=== PATIENT | female | born 1990 | race African-American/Black ===

== ENCOUNTER 2020-05-26 13:29 | Outpatient (REF) | payer MEDICAID, SELFPAY ==
--- NOTE | 2020-05-26 | US_ITS ---
EXAMINATION: ULTRASOUND EXTREMITY NONVASCULAR CLINICAL INFORMATION: -control upper arm implant. COMPARISON: 04/30/2020 soft tissue ultrasound. TECHNIQUE: Multiple 2-D grayscale ultrasound images of the soft tissues of the left upper arm were obtained. FINDINGS: Again seen is a linear, echogenic subcutaneous Nexplanon implant in the superficial subcutaneous fat measuring approximately 3.7 cm in length and positioned approximately 0.6 cm deep to the skin. No surrounding abnormality is seen. IMPRESSION: Subcutaneous implant shows no abnormality or significant interval change.
== END 2020-05-26 13:30 | disposition home or self-care (01) ==
LOC: HO.US 13:29
PROVIDERS: Visit Provider Surgery
DX: Z97.5 Presence of (intrauterine) contraceptive device (principal)
CPT/HCPCS: 11982; 76882; 88300; 99213

== ENCOUNTER → 2020-06-11 13:45 | Outpatient (BNVA) | payer MEDICAID, SELFPAY | PROVIDERS: PCP Internal Medicine; Visit Provider Surgery | DX: Z48.02 Encounter for removal of sutures (principal); Z97.5 Presence of (intrauterine) contraceptive device | CPT/HCPCS: 99212 ==

== ENCOUNTER → 2020-09-08 11:00 | Outpatient (BNVA) | payer MEDICAID, SELFPAY | PROVIDERS: Visit Provider Obstetrics & Gynecology | DX: Z30.9 Encounter for contraceptive management, unspecified (principal) | CPT/HCPCS: 99212 ==

== ENCOUNTER → 2020-11-17 10:54 | Outpatient (BNVA) | payer MEDICAID, SELFPAY | PROVIDERS: Visit Provider Advanced Practice Midwife | DX: N63.10 Unspecified lump in the right breast, unspecified quadrant (principal); N63.20 Unspecified lump in the left breast, unspecified quadrant | CPT/HCPCS: 99212 ==

== ENCOUNTER 2020-11-19 11:05 | Outpatient (REF) | payer MEDICAID, SELFPAY ==
--- NOTE | ~2020-11-19 | MM_ITS ---
EXAMINATION: MM DIAGNOSTIC DIGITAL BREAST TOMOSYNTHESIS, BILATERAL US BREAST LIMITED, BILATERAL CLINICAL INFORMATION: Bilateral breast lump superiorly. Patient states that the breast nodularity changes with her menstrual cycle. The lifetime risk of breast cancer based on the Tyrer-Cuzick Model is 10.2%. COMPARISON: Mammography: None TECHNIQUE: Digital breast tomosynthesis is performed in both the craniocaudal and mediolateral oblique views along with computer-aided detection (CAD). Synthesized 2-D images are generated from the tomosynthesis. Right breast craniocaudal rolled views performed. Spot compression left 90 degree mediolateral view performed. FINDINGS: The breasts are extremely dense, which lowers the sensitivity of mammography (ACR BI-RADS breast composition Category d). On initial imaging, there was question of a lobulated density about the deep medial aspect of the right breast for which rolled views were performed which demonstrated this to represent superimposition of fibroglandular tissue. 90 degree spot compression view was performed for asymmetric density about the superior aspect of the left breast which was seen to efface on the supplementary image. Bilateral breast ultrasound was then performed targeted to the superior aspects. No abnormal cystic or solid mass was appreciated. No region of abnormal distal sound shadowing. Results are discussed with the patient at time of visit. MM/MM tomosynthesis diagnostic BI IMPRESSION: No specific mammographic or ultrasound findings to suggest malignancy. ASSESSMENT: BI-RADS 1: Negative. RECOMMENDATION: Clinical followup.
--- NOTE | ~2020-11-19 | US_ITS ---
EXAMINATION: US DIAGNOSTIC ULTRASOUND BREAST, RIGHT CLINICAL INFORMATION: Palpable abnormality superior aspect of the right breast.. COMPARISON: Mammography of same day.. TECHNIQUE: Ultrasound of the breast is performed with real-time burns scale imaging and color Doppler. FINDINGS: There is no focal suspicious finding. There is no solid mass, architectural abnormality, duct ectasia, or edema in the soft tissue planes. Results are discussed with the patient at time of visit. US/US breast RT limited IMPRESSION: No specific ultrasound findings to suggest malignancy of the right breast. ASSESSMENT: BI-RADS 1: Negative RECOMMENDATION: Clinical follow-up
== END 2020-11-19 11:06 | disposition home or self-care (01) ==
LOC: HO.MAMMO 11:05
PROVIDERS: Visit Provider Advanced Practice Midwife
DX: N63.11 Unspecified lump in the right breast, upper outer quadrant (principal); N63.12 Unspecified lump in the right breast, upper inner quadrant; N63.21 Unspecified lump in the left breast, upper outer quadrant; N63.22 Unspecified lump in the left breast, upper inner quadrant
CPT/HCPCS: 76642; 77062; 77066

== ENCOUNTER → 2020-12-01 08:31 | Outpatient (BNVA) | payer MEDICAID, SELFPAY | PROVIDERS: PCP Internal Medicine; Visit Provider Surgery | DX: N64.4 Mastodynia (principal) | CPT/HCPCS: 99202 ==

== ENCOUNTER 2021-03-09 14:14 | Outpatient (REF) | payer MEDICAID, SELFPAY ==
[2021-03-11 21:07] LABS: TS Negative Control Passed; TS Panel A 0; TS Panel B 1; TS Positive Control Passed; TSpotTB Negative (SeeBelow)
== END 2021-03-09 14:15 | disposition home or self-care (01) ==
LOC: HO.LAB 14:14
PROVIDERS: PCP Internal Medicine; Visit Provider Internal Medicine
DX: Z11.1 Encounter for screening for respiratory tuberculosis (principal)
CPT/HCPCS: 36415; 86481

== ENCOUNTER → 2021-04-01 08:08 | Outpatient (BNVA) | payer SELFPAY | PROVIDERS: PCP Internal Medicine | DX: Z02.1 Encounter for pre-employment examination (principal) ==

== ENCOUNTER → 2021-07-27 11:20 | Outpatient (BNVA) | payer MEDICAID, SELFPAY | PROVIDERS: PCP Internal Medicine; Visit Provider Obstetrics & Gynecology | DX: Z30.9 Encounter for contraceptive management, unspecified (principal) | CPT/HCPCS: 99212 ==

== ENCOUNTER 2021-12-03 09:08 | Outpatient (REF) | payer MEDICAID, SELFPAY ==
[2021-12-07 14:26] LABS: HPV mRNA E6/E7 rflx Not Detected (Not Detected)
== END 2021-12-03 09:09 | disposition home or self-care (01) ==
LOC: HO.LAB 09:08
PROVIDERS: Visit Provider Obstetrics & Gynecology
DX: Z01.419 Encounter for gynecological examination (general) (routine) without abnormal findings (principal); Z11.51 Encounter for screening for human papillomavirus (HPV)
CPT/HCPCS: 87624; 88142

== ENCOUNTER 2021-12-11 11:10 | Outpatient (REF) | payer MEDICAID, SELFPAY ==
--- NOTE | ~2021-12-11 | US_ITS ---
EXAMINATION: US DIAGNOSTIC ULTRASOUND BREAST, LEFT CLINICAL INFORMATION: Pain and palpable abnormality upper outer aspect of the left breast.. COMPARISON: Mammography of same day and studies of January 19, 2021. TECHNIQUE: Ultrasound of the breast is performed with real-time burns scale imaging and color Doppler. FINDINGS: There is no focal suspicious finding. There is no solid mass, architectural abnormality, duct ectasia, or edema in the soft tissue planes. Results are discussed with the patient at time of visit. US/US breast LT limited IMPRESSION: No specific findings to suggest malignancy. ASSESSMENT: BI-RADS 1: Negative RECOMMENDATION: Clinical follow-up .
--- NOTE | ~2021-12-11 | MM_ITS ---
EXAMINATION: MM DIAGNOSTIC DIGITAL BREAST TOMOSYNTHESIS, BILATERAL US BREAST TARGETED, LEFT CLINICAL INFORMATION: Left breast lump. The lifetime risk of breast cancer based on the Tyrer-Cuzick Model is 9.9%. COMPARISON: Mammography: 11/19/2020 TECHNIQUE: Digital breast tomosynthesis is performed in both the craniocaudal and mediolateral oblique views along with computer-aided detection (CAD). Synthesized 2D images are generated from the tomosynthesis. Targeted left breast ultrasound. FINDINGS: The breasts are extremely dense, which lowers the sensitivity of mammography (ACR BI-RADS breast composition Category d). There are no significant masses, abnormal calcifications, or other abnormalities. Targeted ultrasound evaluation about the superior and lateral aspects did not demonstrate any abnormal cystic or solid mass. No region of abnormal distal sound shadowing appreciated. Results are discussed with the patient at time of visit. MM/MM tomosynthesis diagnostic BI IMPRESSION: No specific mammographic or ultrasound findings to suggest malignancy. ASSESSMENT: BI-RADS 1: Negative RECOMMENDATION: Clinical followup. Yearly mammography at age 39.
== END 2021-12-11 11:11 | disposition home or self-care (01) ==
LOC: HO.MAMMO 11:10
PROVIDERS: PCP Internal Medicine; Visit Provider Internal Medicine
DX: N63.22 Unspecified lump in the left breast, upper inner quadrant (principal)
CPT/HCPCS: 76642; 77062; 77066

== ENCOUNTER → 2022-01-27 14:52 | Outpatient (BNVA) | payer MEDICAID, SELFPAY | PROVIDERS: PCP Internal Medicine; Visit Provider Surgery | DX: N64.4 Mastodynia (principal); N63.22 Unspecified lump in the left breast, upper inner quadrant | CPT/HCPCS: 99212 ==

== ENCOUNTER 2022-02-05 14:56 | Outpatient (REF) | payer MEDICAID, SELFPAY ==
[2022-02-08 18:57] LABS: TS Negative Control Passed; TS Panel A 0; TS Panel B 0; TS Positive Control Passed; TSpotTB Negative (Negative)
== END 2022-02-05 14:57 | disposition home or self-care (01) ==
LOC: HO.LAB 14:56
PROVIDERS: PCP Internal Medicine; Visit Provider Internal Medicine
DX: Z11.1 Encounter for screening for respiratory tuberculosis (principal)
CPT/HCPCS: 36415; 86481

== ENCOUNTER → 2022-03-29 14:24 | Outpatient (BNVA) | payer SELFPAY | PROVIDERS: PCP Internal Medicine | DX: Z02.83 Encounter for blood-alcohol and blood-drug test (principal) ==

== ENCOUNTER → 2022-04-05 08:12 | Outpatient (BNVA) | payer MEDICAID, SELFPAY | PROVIDERS: PCP Internal Medicine; Visit Provider Obstetrics & Gynecology | DX: Z30.09 Encounter for other general counseling and advice on contraception (principal) | CPT/HCPCS: 99212 ==

== ENCOUNTER 2023-01-21 15:06 | Outpatient (REF) | payer MEDICAID, SELFPAY ==
[2023-01-24 12:43] LABS: TS Negative Control Passed; TS Panel A 0; TS Panel B 0; TS Positive Control Passed; TSpotTB Negative (Negative)
== END 2023-01-21 15:07 | disposition home or self-care (01) ==
LOC: HO.LAB 15:06
PROVIDERS: PCP Internal Medicine; Visit Provider Internal Medicine
DX: Z11.1 Encounter for screening for respiratory tuberculosis (principal)
CPT/HCPCS: 36415; 86481

== ENCOUNTER 2023-06-30 12:52 | Outpatient (REF) | payer MEDICAID, SELFPAY | END 2023-06-30 12:53 | disposition home or self-care (01) | LOC: HO.LAB 12:52 | PROVIDERS: PCP Internal Medicine; Visit Provider Advanced Practice Midwife | DX: Z01.419 Encounter for gynecological examination (general) (routine) without abnormal findings (principal); N89.8 Other specified noninflammatory disorders of vagina | CPT/HCPCS: 0353U; 87480; 87510; 87660; 99395 ==

== ENCOUNTER 2023-06-30 12:52 | Outpatient (AMB) | payer MEDICAID, SELFPAY ==
--- NOTE | 2023-06-30 13:04 | MHC.OFFVIS ---
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 Denies vaginal itching and irritation.?Onset since 06/29/2023. 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 Currently sexually active. Uses condoms for BC. Wants to start back on BC pills.? Hx. of irregular periods.? STD screening offered; she declined.?? Denies family hx of breast, colon, ovarian cancer, or diabetes.? Last pap smear, was negative. She denies any contraindications to control such as: migraines with aura, history of DVT or pulmonary emboli, high blood pressure, liver disease, thrombolic disorders, Lupus, +AYLIN, or smoking. 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 Sexual orientation: Straight/Heterosexual Gender identity: Female Female Reproductive History Menstrual Age of Menarche: 10 Duration of menses: 3-5 days Date of last menstrual period: 06/24/23 control method: pills Total pregnancies: 1 Full term: 1 Number of Living Children: 1 Date of last pap smear: 12/03/21 (neg pap and hpv) Review of Systems Const All systems reviewed & are unremarkable except as noted in HPI and below Reports as per HPI Eyes Reports no additional complaints ENT Reports no additional complaints Card Reports no additional complaints Resp Reports no additional complaints GI Reports as per HPI and Reports no additional complaints Reports as per HPI Musc Reports no additional complaints Skin/Breast Reports as per HPI Neuro Reports no additional complaints Psych Reports no additional complaints Endo Reports no additional complaints Conor/Lymph Reports no additional complaints Aller/Immun Reports no additional complaints Physical Exam Vital Signs: Last Vital Signs BP 122/80 06/30/23 13:05 BMI result Body Mass Index 27.6 Const General: cooperative, healthy appearing, no acute distress, well developed and alert Orientation/consciousness: patient oriented x3 HEENT Head: Yes normal to inspection Eyes General: appearance normal, both eyes and all related structures Neck Neck: Yes normal visual inspection Thyroid: Thyroid normal Chest Chest palpation & inspection: normal inspection of the chest and other (no puckering, dimpling, peau de orange, retraction, discharge, masses) Breast/axilla inspection: normal inspection of the breasts Breast/axilla palpation: normal palpation of the breasts Resp Effort & Inspection: normal respiratory effort GI Inspection: Yes normal to inspection Palpation (GI): Soft to palpation Rectal Exam - Female: deferred General: Yes bladder normal to palpation External Female Exam: normal external appearance and normal appearance of the urethra Speculum Exam - Vagina: normal palpation, normal vaginal discharge and abnormal vaginal discharge (thin, white, milky discharge) Speculum Exam - Cervix: normal appearance of the cervix and normal palpation Bimanual exam- vagina & uterus: normal bimanual exam, normal palpation, uterine size normal, bladder normal to palpation, normal palpation and non-tender Bimanual Exam- Adnexa, other: no masses Skin General skin exam: no rashes or lesions noted Rashes: no rashes Neuro General: patient oriented x3 Cognition (Neuro): normal cognition Extrem General: Yes normal to inspection Psych Attitude: cooperative Thought process: Normal thought process present Assessment & Plan Assessment & Plan (1) Encounter for gynecological examination: Code(s): Z01.419 - Encounter for gynecological examination (general) (routine) without abnormal findings (2) Vaginal discharge: Code(s): N89.8 - Other specified noninflammatory disorders of vagina Plan: Will send off for a culture. Suspected to be BV. Will treat if necessary. Plan Current recommendations for pap smears per ASCCP guidelines.? Breast awareness and periodic self breast exams.?? Maintaining a healthy lifestyle including a well balanced diet and routine exercise.?? Encouraged condom use for STD and prevention.? Encouraged patient to sign up for patient portal if not already enrolled. Warnings: go to ER if and loss of vision/blindness, severe headache, chest pain or difficulty breathing, severe abdominal pain, or any pain or swelling in an extremity. All of her questions and concerns were addressed to the best of my ability.? RTO in one year for annual publications writer examination. Orders: Orders Bacterial Vaginosis Panel Today N89.8 - Other specified noninflammatory disorders of vagina CT NG by PCR Today N89.8 - Other specified noninflammatory disorders of vagina Medications: Refilled desogestrel-ethinyl estradiol 0.15-0.03 mg (Apri) 1 tab PO DAILY 28 days 84 tabs 4RF Coding Level of Care Code Est Pt Prev Care 18-39y(69101) Diagnoses Encounter for gynecological examination Z01.419 Vaginal discharge N89.8
[2023-06-30 13:05] VITALS: BP 122/80; BMI 27.6
== END 2023-06-30 15:09 | disposition home or self-care (01) ==
PROVIDERS: PCP Internal Medicine; Visit Provider Advanced Practice Midwife
DX: Z01.419 Encounter for gynecological examination (general) (routine) without abnormal findings (principal); N89.8 Other specified noninflammatory disorders of vagina
CPT/HCPCS: 99395

== ENCOUNTER 2023-06-30 13:50 | Outpatient (REF) | payer MEDICAID, SELFPAY ==
[2023-07-01 10:59] LABS: CT PCR NOT DETECTED (Not Detect.); NG PCR NOT DETECTED (Not Detect.)
[2023-07-01 13:13] LABS: BV Int Neg Control Negative (Negative); BV Int Pos Control Positive (Positive)
== END 2023-06-30 13:51 | disposition home or self-care (01) ==
LOC: HO.LNP 13:50
PROVIDERS: Visit Provider Advanced Practice Midwife
DX: N89.8 Other specified noninflammatory disorders of vagina (principal)
CPT/HCPCS: 0353U; 87480; 87510; 87660

== ENCOUNTER 2023-10-24 03:17 | Emergency (ER) | payer MEDICAID, SELFPAY ==
--- NOTE | ~2023-10-24 | US_ITS ---
EXAMINATION: US OBSTETRICAL ULTRASOUND CLINICAL INFORMATION: 6 weeks with abdominal pain COMPARISON: None from this TECHNIQUE: Sonographic evaluation of the pelvis was performed transabdominally and transvaginally. FINDINGS: Anechoic structure along the endometrium with mean diameter of 0.5 cm. Internal structure suggestive of a yolk sac is seen, and overall appearance is favored to represent a gestational sac though no pole is seen at this time which could be due to the early phase of . Mean sac diameter corresponds to gestational age of 5 weeks 0 days (estimated date of delivery 06/18/2024). The uterus measures 9.2 x 4.7 x 6.0 cm. There is a mildly hyperechoic mass in the anterior uterus measuring up to 1.8 cm, suspicious for a fibroid. The right ovary measures 2.6 x 1.4 x 1.7 cm and appears unremarkable with internal flow demonstrated on Doppler imaging. The left ovary measures 3.3 x 2.4 x 3.0 cm. Complex appearing cystic structure within the left ovary measuring up to 2.2 cm is favored to represent a corpus luteal cyst. Doppler evaluation demonstrates left ovarian flow. Trace free fluid is seen. US/US OB pelvic and transvaginal IMPRESSION: 1. Intrauterine structure likely representing a gestational sac, though no pole is seen at this time which may be due to the early phase of . Sonographic follow-up is recommended to assess for development of a gestational sac. 2. Uterine fibroid measuring 1.8 cm. 3. Trace nonspecific pelvic free fluid.
--- NOTE | ~2023-10-24 | US_ITS ---
EXAMINATION: US ABDOMEN LIMITED CLINICAL INFORMATION: Right upper quadrant pain. COMPARISON: None available. TECHNIQUE: Real-time imaging of the right upper quadrant abdominal viscera. FINDINGS: PANCREAS: The visualized proximal portion of the pancreas is unremarkable. The distal portion is obscured secondary to overlying bowel gas. LIVER: The liver is normal in size. The liver contour is normal. Parenchymal echogenicity is normal. Hyperechoic lesion measuring 1.4 cm in the right hepatic lobe is most suggestive of a hemangioma. There is no intrahepatic biliary duct dilatation seen. GALLBLADDER: The gallbladder is physiologically distended without evidence of stones, sludge, polyps, wall thickening or pericholecystic fluid. COMMON BILE DUCT: Normal in caliber measuring 0.3 cm in diameter. RIGHT KIDNEY: No hydronephrosis. No renal calculi or focal parenchymal lesions. The kidney measures 10.8 cm in maximum dimension. FREE FLUID: None. US/US abdomen limited IMPRESSION: 1. No acute findings identified. 2. Hyperechoic right hepatic lobe lesion measuring 1.4 cm, most suggestive of a hemangioma in the absence of clinical risk factors. This could be more definitively assessed with nonemergent dynamic liver MRI.
[2023-10-24 03:27] VITALS: BP 142/98; PULSE 86; RESP 18; TEMP 36.9; O2SAT 100
[2023-10-24 04:18] LABS: Hematocrit 39.4 % (37.0-47.0); Hemoglobin 13.2 g/dl (12.0-16.0); Mean Corpuscular HGB Conc 33.5 g/dl (31.0-35.0); Mean Corpuscular Hemoglobin 28.4 pg (27.0-33.0); Mean Corpuscular Volume 84.9 fL (80.0-98.0); Mean Platelet Volume 8.4 fL (9.4-12.3); Platelet Count 276 X10*3/uL (160-400); Red Blood Count 4.64 X10*6/uL (4.20-5.50); Red Cell Distribution Width 14.5 % (11.0-16.0); White Blood Count 7.9 X10*3/uL (4.8-10.8)
[2023-10-24 04:36] LABS: Anion Gap 12 (12-20); Blood Urea Nitrogen 13 mg/dL (9-16); Calcium 9.7 mg/dL (8.4-10.2); Carbon Dioxide 25 mmol/L (22-29); Chloride 104 mmol/L (96-108); Creatinine Clr Calc Pharmacy 94.9; Estimated Glomerular Filt Rate > 60; Glucose Random 124 mg/dL (60-115); Sodium 137 mmol/L (135-145)
[2023-10-24 04:37] LABS: HCG Quantitative 9495 mIU/mL
--- NOTE | 2023-10-24 05:09 | ED.GENADULT ---
HPI - General Adult General Chief complaint: Vaginal Bleeding Stated complaint: vaginal bleeding, may be Time Seen by Provider: 10/24/23 04:54 Source: patient Mode of arrival: ambulatory Limitations: no limitations History of Present Illness HPI narrative: 33-year-old female had a positive home test, patient started to have vaginal bleeding since last night patient also is complaining lower abdominal contraction/pain since yesterday, patient also is complaining of right upper quadrant abdominal pain with nausea and vomiting for 1 day. No fever, no chills, no risk for STDs, no history of ectopic , no dysuria, no frequency urination. Related Data Previous Rx's Medication Instructions Recorded desogestrel 0.15 mg-ethinyl 1 tab PO DAILY 28 days #84 tabs 06/30/23 estradiol 0.03 mg tablet (Apri) metronidazole 500 mg tablet 500 mg PO BID 7 days #14 tabs 07/06/23 Allergies Allergy/AdvReac Type Severity Reaction Status Date / Time No Known Allergies Allergy Verified 10/24/23 03:25 Review of Systems Review of Systems: All other systems are reviewed and are negative Constitutional: Reports as per HPI and Reports no additional constitutional complaints Eyes: Reports as per HPI and Reports no additional eye complaints Reports system reviewed and no additional complaints, except as documented Cardiovascular: Reports as per HPI and Reports no additional cardiovascular complaints Respiratory: Reports as per HPI and Reports no additional respiratory complaints Gastrointestinal: Reports as per HPI and Reports no additional gastrointestinal complaints Genitourinary: Reports no additional female genitourinary complaints Musculoskeletal: Reports no additional musculoskeletal complaints Skin/Breast: Reports system reviewed and no additional complaints, except as docu Psychiatric: Reports no additional psychiatric complaints Endocrine: Reports no additional endocrine complaints Hematologic/Lymphatic: Reports no additional hematologic/lymphatic complaints Allergic/Immunologic: Reports no additional allergic/immunologic complaints Reports system reviewed and no additional complaints, except as documented and Reports Abnormal speech present [facility] Past Medical History Medical History Breast pain, left Surgical History H/O lumpectomy Bilateral breast lump Family History Family History Mother Diabetes Social History Social History Alcohol intake: never Patient Tobacco Use Status: Never used Tobacco Advance Directives: No 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 Blood pressure elevated. Heart rate normal. Respiratory rate normal. Temperature normal. Oxygen saturation normal. Appearance: Alert. Oriented X3. No acute distress. Head: Normal external exam. Normocephalic. Atraumatic. No Mariscal signs noted. No raccoon eyes noted Eyes: PERRLA. EOMI. Conjunctiva and sclera normal. Eyelids normal. ENT: TM's Normal. Pharynx normal. Uvula midline. Moist mucous membranes. No trismus noted. No drooling noted. No muffled voice noted. Neck: Normal inspection. Neck supple. FROM. No adenopathy. Thyroid Normal. No meningeal signs. No neck mass noted. CVS: Normal heart rate and rhythm. Heart sound normal. No murmurs noted. Pulses normal throughout. Respiratory: No respiratory distress. Painless inspiration. Breath sounds normal. No wheezes/rales/rhonchi noted. Chest nontender. No accessory muscle usage noted or decreased air movement noted. Abdomen: Soft, RUQ tenderness, no rebound tenderness, no guarding. Bowel sounds normal in all 4 quadrants. No distention noted. No organomegaly noted. No visible injury noted. Pelvic exam: deferred for pelvic U.S. Back: No CVA tenderness. Full range of motion noted. Skin: Skin warm and dry. Normal skin color. Normal skin turgor. No rashes/lesions/lacerations noted. Extremities: No lower extremity edema. Extremities exhibit normal range of motion. Extremities nontender. Neuro: Oriented X 3. Cranial nerve exam: II-XII are grossly intact No motor deficit. No sensory deficit. Reflexes normal. Course Reevaluation(s) Reevaluation #1: 33-year-old f 5 weeks by date came in with vaginal bleeding and RUQ abdominal pain, normal LFTs, normal WBCs and H&H. Pending UA/ultrasound abdomen/pelvis. Signed out to Dr. Dinero to follow-up on the pending workup and dispo the patient expected be discharged and follow-up as an outpatient with OBGYN. Time: 06:41 Medical Decision Making Differential Diagnosis Differential Diagnoses: The differential diagnosis associated with the presentation includes (Threatening , ectopic , severe anemia, ABO Rh incompatibility, cholelithiasis, kidney stone, electrolyte derangement, UTI.) Admission/Observation Consideration of admission/observation: Escalation of care including admission/observation considered Lab Data MDM Lab Attestation statement: I reviewed the patient's lab results. 10/24/23 04:13 10/24/23 04:13 Labs: Lab Results 10/24/23 10/24/23 Range/Units 04:13 04:16 WBC 7.9 (4.8-10.8) X10*3/uL RBC 4.64 (4.20-5.50) X10*6/uL Hgb 13.2 (12.0-16.0) g/dl Hct 39.4 (37.0-47.0) % MCV 84.9 (80.0-98.0) fL MCH 28.4 (27.0-33.0) pg MCHC 33.5 (31.0-35.0) g/dl RDW 14.5 (11.0-16.0) % Plt Count 276 (160-400) X10*3/uL MPV 8.4 L (9.4-12.3) fL Absolute Nucleated RBC 0.000 (0.0-0.012) X10*3/uL Nucleated RBC % (auto) 0.0 (0.0-0.2) /100WBC Sodium 137 (135-145) mmol/L Potassium 4.0 (3.3-5.1) mmol/L Chloride 104 (96-108) mmol/L Carbon Dioxide 25 (22-29) mmol/L Anion Gap 12 (12-20) BUN 13 (9-16) mg/dL Creatinine 0.85 (0.5-1.4) mg/dL Estim Creat Clear Calc 94.9 Estimated GFR > 60 Random Glucose 124 H (60-115) mg/dL Calcium 9.7 (8.4-10.2) mg/dL Total Bilirubin 0.2 (0.0-1.0) mg/dL Direct Bilirubin < 0.2 (0.0-0.5) mg/dL AST 12 (5-31) U/L ALT 12 (0-31) U/L Alkaline Phosphatase 74 (39-117) U/L Total Protein 7.5 (6.5-8.0) g/dL Albumin 4.0 (3.5-5.0) g/dL Lipase 46 (8-78) U/L Beta HCG, Quant 9495 mIU/mL Blood Type B Positive Discharge Plan Discharge Clinical Impression: Threatened Patient Disposition: Still a Patient Instructions: Threatened Miscarriage (ED) Prescriptions: No Action metronidazole 500 mg tablet 500 mg PO BID 7 Days Qty: 14 0RF Rx Instructions: Take with food, Avoid alcohol and vinegar products desogestrel-ethinyl estradiol [Apri] 0.15-0.03 mg tablet 1 tab PO DAILY 28 Days Qty: 84 4RF Referrals: Missael Levine MD [Primary Care Provider] - Rey Hill MD [Physician] -
[2023-10-24 05:26] LABS: Alanine Aminotransferase 12 U/L (0-31); Alkaline Phosphatase 74 U/L (39-117); Aspartate Amino Transferase 12 U/L (5-31); Bilirubin Direct < 0.2 mg/dL (0.0-0.5); Bilirubin Total 0.2 mg/dL (0.0-1.0); Lipase 46 U/L (8-78); Total Protein 7.5 g/dL (6.5-8.0)
[2023-10-24 06:47] VITALS: BP 131/75; PULSE 77
[2023-10-24 06:49] VITALS: BP 122/79; BP 130/72; PULSE 75; PULSE 88
[2023-10-24 06:51] VITALS: BP 122/79; PULSE 88; RESP 16; O2SAT 99
[2023-10-24 07:56] LABS: Appearance Urine Cloudy; Color Urine Yellow; Glucose Urine UA 100 mg/dL (Negative); Leukocyte Esterase Urine Large (3+) (Negative); Nitrite Urine Negative (Negative); PH 5.5 (5.0-9.0); UMIC TRIGGER UACC YES; Urine Blood Moderate (2+) (Negative); Urine Ketones Negative (Negative); Urine Protein Negative (Neg-Trace)
[2023-10-24 08:11] LABS: Bacteria Urine 3+ (None Seen); Hyaline Casts Urine 0-2 /LPF (0-2); RBC Urine 0-2 /HPF (0-2); UACC Culture Trigger YES
[2023-10-24 08:36] VITALS: BP 127/69; PULSE 82; RESP 18; TEMP 36.7; O2SAT 100
[2023-10-24 08:51] LABS: INTERNATIONAL NORM RATIO 1.1 (0.9-1.1); Prothrombin Time 12.8 SEC (11.1-13.3)
== END 2023-10-24 08:48 | disposition still patient (30) ==
PROVIDERS: Emergency Medicine; Emergency Provider Emergency Medicine; PCP Internal Medicine
DX: O20.0 Threatened abortion (principal); Z3A.01 Less than 8 weeks gestation of pregnancy
CPT/HCPCS: 36415; 76705; 76801; 76817; 80048; 80076; 81001; 83690; 84702; 85027; 85610; 86900; 86901; 87086; 99284

== ENCOUNTER 2023-10-26 11:07 | Outpatient (REF) | payer MEDICAID, SELFPAY ==
[2023-10-26 12:08] LABS: HCG Quantitative 13423 mIU/mL
== END 2023-10-26 11:08 | disposition home or self-care (01) ==
LOC: HO.LAB 11:07
PROVIDERS: PCP Internal Medicine; Visit Provider Obstetrics & Gynecology
DX: O20.0 Threatened abortion (principal)
CPT/HCPCS: 36415; 84702; 99212

== ENCOUNTER 2023-10-26 13:57 | Outpatient (AMB) | payer MEDICAID, SELFPAY ==
--- NOTE | 2023-10-26 14:03 | MHC.OFFVIS ---
Intake Vital Signs 10/26/23 14:04 Height 5 ft 4 in Weight 174 lb BMI 29.9 BP 127/69 Intake Visit Reasons: HCG follow up Patient Care Manager Required: No Information Interpreted: non-clinical & clinical Custom Clothier: Custom Clothier Present Accompanied by: Self / Same As Patient Allergies No Known Allergies Allergy (Verified 10/26/23 14:04) Post menopausal: No HPI HPI Comments History of Present Illness Details Presenting for hCG follow-up with no complaints no pelvic pain, bleeding or any other concerns. 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 Sexual orientation: Straight/Heterosexual Gender identity: Female Female Reproductive History Menstrual Age of Menarche: 10 Review of Systems Const All systems reviewed & are unremarkable except as noted in HPI and below Reports as per HPI and Reports no additional complaints GI Reports no additional complaints Reports no additional complaints Physical Exam Vital Signs: Last Vital Signs BP 127/69 10/26/23 14:04 BMI result Body Mass Index 29.9 Assessment & Plan Assessment & Plan (1) Early stage of : Code(s): Z34.90 - Encounter for supervision of normal , unspecified, unspecified trimester Plan: SAB/ectopic warnings given to patient, she is to call or go to emergency room in case of pelvic pain and or bleeding otherwise schedule a follow-up ultrasound appointment on 11/06. vitamin 1 tablet p.o. q.d.. All questions answered, the patient verbalized understanding. Medications: New ,calc.[id number] 1 27-1 mg (PNV-Select) 1 tab PO DAILY 90 tabs 2RF Coding Level of Care Code Est Pt Level 3 (17114) Diagnoses Early stage of Z34.90
[2023-10-26 14:04] VITALS: BP 127/69; BMI 29.9
== END 2023-10-26 15:16 | disposition home or self-care (01) ==
LOC: HO.HWS 13:58
PROVIDERS: PCP Internal Medicine; Visit Provider Obstetrics & Gynecology
DX: Z34.90 Encounter for supervision of normal pregnancy, unspecified, unspecified trimester (principal)
CPT/HCPCS: 99213

== ENCOUNTER 2023-11-07 12:47 | Outpatient (REF) | payer MEDICAID, SELFPAY ==
--- NOTE | ~2023-11-07 | US_ITS ---
EXAMINATION: US OBSTETRICAL ULTRASOUND CLINICAL INFORMATION: Irregular menstruation. Positive test. COMPARISON: Pelvic ultrasound from 10/24/2023 LMP: 09/12/2023. Gestational age by maternal dates is 8 weeks. Estimated date of delivery by maternal dates is 06/18/2024. TECHNIQUE: Sonographic imaging of the pelvis is performed using a transabdominal transducer. FINDINGS: Single viable intrauterine gestation is present. The pole has a crown-rump length of 0.93 cm, corresponding to an estimated gestational age of 7 weeks, 3 days and estimated date of delivery of 06/25/2024. The heart rate is 153 bpm. No subchorionic hemorrhage. The uterus has normal myometrial echotexture. No pelvic free fluid. The ovaries are normal. The right ovary is 3 x 1.8 x 2.2 cm, volume of 6.2 mL. The left ovary is 3.5 x 2 x 2.1 cm, volume of 7.7 mL. No adnexal mass. US/US OB <= 14 weeks fetus IMPRESSION: Single viable intrauterine gestation is present. The pole has a crown-rump length of 0.93 cm, corresponding to an estimated gestational age of 7 weeks, 3 days and an estimated date of delivery of 06/25/2024.
== END 2023-11-07 12:48 | disposition home or self-care (01) ==
LOC: HO.US 12:47
PROVIDERS: PCP Internal Medicine; Visit Provider Advanced Practice Midwife
DX: Z34.90 Encounter for supervision of normal pregnancy, unspecified, unspecified trimester (principal)
CPT/HCPCS: 76801; 99212

== ENCOUNTER 2023-11-07 13:27 | Outpatient (AMB) | payer MEDICAID, SELFPAY ==
--- NOTE | 2023-11-07 13:37 | A.OFFVIS_ITS ---
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 On vitamin 1 tablet p.o. q.d.. Ultrasound done today, report not available but unofficial reading showed the following: IUP measuring 7 weeks of gestation, TATYANA 06/25/2024, 153 beats per minute with yolk sac , pole present. 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 Sexual orientation: Straight/Heterosexual Gender identity: Female Female Reproductive History Menstrual Age of Menarche: 10 Review of Systems Const All systems reviewed & are unremarkable except as noted in HPI and below Reports as per HPI and Reports no additional complaints GI Reports no additional complaints Reports no additional complaints Physical Exam Vital Signs: Last Vital Signs BP 110/70 11/07/23 13:38 BMI result Body Mass Index 29.5 Assessment & Plan Assessment & Plan (1) Early stage of : Code(s): Z34.90 - Encounter for supervision of normal , unspecified, unspecified trimester Plan: Discussed with the patient the results of ultrasound showing a live IUP, SAB warnings given the patient, she is to go the emergency room or call in case of pelvic pain/cramping vaginal bleeding. vitamin 1 tablet p.o. q.d.. Instructions given the patient to schedule a initial OB intake appointment in 1 week. All questions answered, the patient verbalized understanding. Orders: Orders US OB <= 14 weeks fetus Today N92.6 - Irregular menstruation, unspecified Coding Level of Care Code Est Pt Level 3 (55937) Diagnoses Early stage of Z34.90
[2023-11-07 13:38] VITALS: BP 110/70; BMI 29.5
== END 2023-11-08 08:41 | disposition home or self-care (01) ==
LOC: HO.HWS 13:27
PROVIDERS: PCP Internal Medicine; Visit Provider Obstetrics & Gynecology
DX: Z34.90 Encounter for supervision of normal pregnancy, unspecified, unspecified trimester (principal)
CPT/HCPCS: 99213

== ENCOUNTER 2024-08-30 09:08 | Outpatient (REF) | payer MEDICAID, SELFPAY ==
[2024-08-30 09:33] LABS: MANUAL DIFF FLAG NO
[2024-08-30 10:31] LABS: Basophils Percent Auto 0.4 % (0-2); Eosinophils Absolute Auto 0.2 X10*3/uL (0.0-0.4); Eosinophils Percent Auto 2.9 % (0-4); Hematocrit 47.2 % (37.0-47.0); Hemoglobin 15.5 g/dl (12.0-16.0); Imm Gran Abs Auto 0.02 X10*3/uL (0.00-0.03); Imm Gran Pct Auto 0.3 % (0.0-0.4); Lymphocytes Absolute Auto 2.5 X10*3/uL (1.2-4.9); Lymphocytes Percent Auto 35.1 % (20-40); Mean Corpuscular HGB Conc 32.8 g/dl (31.0-35.0); Mean Corpuscular Hemoglobin 29.4 pg (27.0-33.0); Mean Corpuscular Volume 89.4 fL (80.0-98.0); Mean Platelet Volume 10.3 fL (9.4-12.3); Monocytes Absolute Auto 0.5 X10*3/uL (0.1-1.2); Monocytes Percent Auto 6.3 % (2-11); Neutrophils Absolute Auto 3.9 x10*3/uL (2.0-8.3); Platelet Count 254 X10*3/uL (160-400); Red Blood Count 5.28 X10*6/uL (4.20-5.50); Red Cell Distribution Width 13.7 % (11.0-16.0); White Blood Count 7.2 X10*3/uL (4.8-10.8)
[2024-08-30 10:53] LABS: Estimated Average Glucose 151 mg/dL; Hemoglobin A1c % 6.9 % (<6.0); Total Hemoglobin (HGBA1C) 4007.4015 umol/L
[2024-08-30 11:20] LABS: Alanine Aminotransferase 37 U/L (0-31); Albumin Level 4.5 g/dL (3.5-5.0); Anion Gap 14 (12-20); Aspartate Amino Transferase 32 U/L (5-31); Bilirubin Total 0.4 mg/dL (0.0-1.0); Blood Urea Nitrogen 13 mg/dL (9-16); Calcium 9.8 mg/dL (8.4-10.2); Carbon Dioxide 25 mmol/L (22-29); Chloride 107 mmol/L (96-108); Cholesterol 198 mg/dL (<200); Estimated Glomerular Filt Rate > 60; Glucose Fasting 187 mg/dL (60-99); HDL Cholesterol 46 mg/dL (>40); LDL Cholesterol Calculated 128 mg/dL (<100); Potassium 3.5 mmol/L (3.3-5.1); Sodium 142 mmol/L (135-145); Total Protein 8.4 g/dL (6.5-8.0); Triglycerides 124 mg/dL (<150)
[2024-08-30 11:33] LABS: Free T4 (Free Thyroxine) 0.85 ng/dL (0.71-1.85); Thyroid Stimulating Hormone 1.48 uIU/mL (0.32-4.0)
[2024-08-30 12:27] LABS: Alkaline Phosphatase 100 U/L (39-117)
== END 2024-08-30 09:09 | disposition home or self-care (01) ==
LOC: HO.LAB 09:08
PROVIDERS: PCP Internal Medicine; Visit Provider Internal Medicine
DX: Z00.00 Encounter for general adult medical examination without abnormal findings (principal); R53.83 Other fatigue; R73.09 Other abnormal glucose
CPT/HCPCS: 36415; 80053; 80061; 83036; 84439; 84443; 85025

== ENCOUNTER 2025-02-27 15:38 | Outpatient (REF) | payer BC, MEDICAID, SELFPAY ==
--- OUTSIDE RECORDS SUMMARY | 2025-02-27 15:43 | XMS_ITS | Data Portability ---
Author Organization [email or web address], [address] Address [address] [place] [address] Assessment No assessment recorded. Plan of Treatment Reminders Order Date Submit Date Provider Last Modified By Organization Details Last Modified Time Details Appointments None record ed. Lab None record ed. Referral None record ed. Procedures None record ed. Surgeries None record ed. Imaging None record ed. Medication Orders None record ed. Patient TargetsNo targets recorded. Patient InstructionsNo instructions recorded. Reason for Referral None Reported. Procedures Surgical History Date Name Laterality Status Provider Name and Address Organization Details Recorded Time 3 OC-UDS Send Out Template NON DOT completed SMITA ALLANWILLIE [facility] 02/01/2023 11:20:05 Imaging Results None recorded. Procedure Notes None recorded. Medical Equipment None Reported. Medications Name Sig Start Date Stop Date Status Note LastModified by Organization Details LastModified Time Apri 0.15 mg-0.03 mg tablet TAKE 1 TABLET BY MOUTH EVERY DAY active Not Available Not Available No t Available Vitals None Recorded Social History None recorded. Functional Status None recorded. Mental Status None recorded. Family History Nothing Reported. Medical History No medical history recorded. Gynecological HistoryNo gynecological history recorded. Obstetrics History GPAL:G 0 P 0 0 0 0 Past Encounters Encounter ID Performer Location Encounter Start Date Encounter Closed Date Diagnosis/Indication Diagnosis SNOMED-CT Code Diagnosis ICD10 Code Diagnosis Note [id number] [address] [place] [address] 08/16/2021 08:55:00 08/16/2021 10:01:35 [id number] [address] [place] [address] 12/03/2019 14:29:21 12/03/2019 16:05:48 [id number] [address] [place] [address] 07/11/2015 15:08:42 07/11/2015 15:39:32 [id number] [address] [place] [phone] 05/27/2016 12:42:41 05/27/2016 14:10:04 [id number] [address] [place] [phone] 09/20/2017 11:48:12 09/20/2017 12:14:58 [id number] [address] [place] [phone] 09/17/2019 17:36:13 09/17/2019 18:46:18 [id number] [address] [place] [address] 03/06/2016 19:12:00 03/06/2016 19:49:20 [id number] Mei Hubbard MD [address] [place] [address] 02/01/2023 10:52:02 02/01/2023 11:22:40 History and physical examination, occupation [id number] Z02.1 Health Concerns Section Related Observation LastModified by Organization Detai ls LastModified Time None Recorded Concern Status LastModified by Organization Details LastModified Time None Recorded Advance Directives Directive None Recorded Payers Insurance Date Sequence Insurance Name Policy Number Policy Vazquez Covered Member ID Vazquez Member ID Guarantor Name 02/01/2023 1 [facility] - MEDICAID ESSENTIAL (MEDICAID HMO) [id number] Harika Villasenor [id number] Hailey Joy 02/01/2023 2 [place] [facility] Hailey Villasenor [id number] Hailey Gli Benita 02/01/2023 OC-ESCREEN Hailey iGl Benita [facility] Hailey Gil Benita OBGyn Episode No OBEpisode recorded.
[2025-02-27 16:07] LABS: MANUAL DIFF FLAG NO
[2025-02-27 17:08] LABS: Hematocrit 38.6 % (37.0-47.0); Hemoglobin 12.6 g/dl (12.0-16.0); Imm Gran Abs Auto 0.02 X10*3/uL (0.00-0.03); Imm Gran Pct Auto 0.3 % (0.0-0.4); Lymphocytes Absolute Auto 2.4 X10*3/uL (1.2-4.9); Mean Corpuscular HGB Conc 32.6 g/dl (31.0-35.0); Mean Corpuscular Hemoglobin 28.5 pg (27.0-33.0); Mean Corpuscular Volume 87.3 fL (80.0-98.0); NRBC Abs Auto 0.000 X10*3/uL (0.0-0.012); NRBC Pct Auto 0.0 /100WBC (0.0-0.2); Platelet Count 325 X10*3/uL (160-400); Red Blood Count 4.42 X10*6/uL (4.20-5.50); White Blood Count 7.0 X10*3/uL (4.8-10.8)
[2025-02-27 17:15] LABS: Hemoglobin A1C 165.1740 umol/L; Total Hemoglobin (HGBA1C) 3294.1441 umol/L
[2025-02-27 17:43] LABS: Microalbum/Creatinine Ratio Ur 3.8 ug/mg cr (<30)
[2025-02-27 17:48] LABS: Alanine Aminotransferase 31 U/L (0-31); Albumin Level 4.3 g/dL (3.5-5.0); Alkaline Phosphatase 85 U/L (39-117); Anion Gap 9 (12-20); Aspartate Amino Transferase 40 U/L (5-31); Blood Urea Nitrogen 12 mg/dL (9-16); Calcium 9.2 mg/dL (8.4-10.2); Carbon Dioxide 29 mmol/L (22-29); Chloride 108 mmol/L (96-108); Cholesterol 177 mg/dL (<200); Estimated Glomerular Filt Rate > 60; HDL Cholesterol 37 mg/dL (>40); Magnesium 2.1 mg/dL (1.6-2.6); Potassium 3.9 mmol/L (3.3-5.1); Sodium 142 mmol/L (135-145); Total Protein 7.3 g/dL (6.5-8.0); Triglycerides 107 mg/dL (<150)
[2025-02-27 18:10] LABS: Folate 9.5 ng/mL (> or = 4.0); Vitamin B12 653 pg/mL (200-900)
== END 2025-02-27 15:39 | disposition home or self-care (01) ==
LOC: HO.LAB 15:38
PROVIDERS: PCP Physician Assistant Medical; Visit Provider Physician Assistant Medical
DX: Z00.00 Encounter for general adult medical examination without abnormal findings (principal); E11.9 Type 2 diabetes mellitus without complications
CPT/HCPCS: 36415; 80053; 80061; 80076; 82043; 82248; 82306; 82570; 82607; 82746; 83036; 83735; 84443; 85025; 86140

== ENCOUNTER 2025-02-28 14:45 | Outpatient (AMB) | payer BC, MEDICAID, SELFPAY ==
--- NOTE | 2025-02-28 14:46 | MHC.PC.OV ---
Vital Signs 02/28/25 14:52 02/28/25 15:19 Height 5 ft 5.55 in Weight 170 lb 8 oz BMI 27.9 BP 140/76 H 110/60 Blood Pressure Location Rt brachial Lt brachial Position Sitting Sitting Respiration 16 Pulse 84 Pulse Source Pulse Oximeter Temp 97.9 F Temp Source Temporal Artery Scan Pulse Oximetry (%) 99 Oxygen Delivery Method Room Air Intake Visit Reasons: Recently diagnosed with Diabetes Composition Mixer Required: No Accompanied by: Self / Same As Patient Allergies No Known Allergies Allergy (Verified 02/28/25 15:19) Medication List - Last Reconciled 02/28/25 by Amelia Pretty PA-C cholecalciferol (vitamin D3) 50 mcg PO DAILY tirzepatide (Mounjaro) 2.5 mg (0.5 mL) subcut QWEEK Tobacco use date assessed: 02/28/25 Dental Screening Dental Screen Date: 02/28/25 Did you have a dental visit in the last 12 months?: No Did you have a dental problem in the last 6 months where you did not have access to dental care?: No Was dental information given to patient?: Patient has dentist HPI Recently diagnosed with Diabetes HPI Details The patient is a 34-year-old female presenting for a new patient appointment to establish a new primary care provider along with management of type 2 diabetes mellitus and evaluation of dizziness. The patient was diagnosed with gestational diabetes during her , which resolved post-delivery in April. Her fasting glucose levels have been elevated, with a recent hemoglobin A1c of 6.7%. She has attempted management with metformin and glyburide, both of which caused gastrointestinal side effects. Her mother has a history of diabetes, raising concerns about familial predisposition. The patient reports dizziness since the previous day, which is a new symptom for her. Her blood pressure was recorded at 110/60 mmHg, and she admits to low fluid intake, having consumed only one cup of water that day. She denies any changes in vision, shortness of breath, weakness, chest pain or right upper quadrant abdominal pain. The patient has a history of elevated liver enzymes, with AST levels rising from 32 to 40. She denies alcohol consumption and reports no associated abdominal pain. Her lipid profile indicates hyperlipidemia, with LDL cholesterol at 119 mg/dL and HDL cholesterol at 37 mg/dL. Her vitamin D levels are low, which is concerning for potential osteoporosis risk in the future. A heart murmur was detected during the examination, prompting further investigation with an echocardiogram. Social History - Family Status: Has a 9-month-old child. [facility] Medical History (Updated 02/28/25 @ 15:24 by Amelia Pretty PA-C) Dizziness Hyperlipidemia LDL goal <70 Establish gestational age, ultrasound Elevated AST (SGOT) Heart murmur Vitamin D deficiency Type 2 diabetes mellitus with hemoglobin A1c goal of less than 7.0% Breast pain, left Surgical History H/O lumpectomy Bilateral breast lump Family History Mother Diabetes Hypertension Father Diabetes Hypertension Social History Housing: House Alcohol intake: current Alcohol intake frequency: does not drink Patient Tobacco Use Status: Never used Tobacco service: No Current occupational status: employed Sexual orientation: Straight/Heterosexual Gender identity: Female Cognitive needs: No Hearing needs: No Vision needs: No Female Reproductive History Menstrual Age of Menarche: 10 Questionnaire PHQ-9 Over the last 2 weeks, how often have you been bothered by any of the following problems? 1. Little interest or pleasure in doing things: not at all 2. Feeling down, depressed, or hopeless: not at all 3. Trouble falling or staying asleep, or sleeping too much: not at all 4. Feeling tired or having little energy: not at all 5. Poor appetite or overeating: not at all 6. Feeling bad about yourself - or that you are a failure or have let yourself or your family down: not at all 7. Trouble concentrating on things, such as reading the newspaper or watching television: not at all 8. Moving or speaking so slowly that other people could have noticed. Or the opposite - being so fidgety or restless that you have been moving around a lot more than usual: not at all 9. Thoughts that you would be better off or of hurting yourself in some way: not at all Total score: 0 Depression Screening Interpretation: Negative Depression Screening Done: Yes 49514 - PHQ-9 Billing: Yes Source: Developed by Drs. Kyung Curry Kurt Kroenke and colleagues, with an educational brenda from [employer]. Thrive Questionnaire Date Thrive assessed: 02/28/25 I am a: Patient What is your living situation today?: I have a steady place to live Within the past 12 months, did the food you bought not last and you didn't have the money to get more?: Never true Within the past 12 months, did you worry whether your food would run out before you got money to buy more?: Never true Do you have trouble paying for medicines?: No Do you have trouble getting transportation to medical appointments?: No Do you have trouble paying your heating and electricity bill?: No Do you have trouble taking care of your child, family member or friend?: No Do you have trouble with day-to-day activities such as bathing, preparing meals, shopping, managing finances, etc.?: No Are you currently unemployed and looking for a job?: No Are you interested in more education?: No Please select the resources that you would like help with: None Currently or been in a relationship where the following occur: No concerns reported THRIVE Score: 0 AUDIT C Alcohol Use Questionnaire (AUDIT-C) 1. How often do you have a drink containing alcohol?: Never 3. How often do you have six or more drinks on one occasion?: Never Total Score: 0 Score Reviewed/Action Taken: No YARELY-7 AMB Questionnaire YARELY-7 Date YARELY - 7 assessed: 02/28/25 Feeling nervous, anxious, or on edge: 0 = Not at all Not being able to stop or control worryin = Not at all Worrying too much about different things: 0 = Not at all Trouble relaxin = Not at all Being so restless that it is hard to sit still: 0 = Not at all Becoming easily annoyed or irritable: 0 = Not at all Feeling afraid as if something awful might happen: 0 = Not at all Total YARELY-7 score (0-4 normal; 5-9 mild; 10-14 moderate; 15-21 severe): 0 Source: Developed by Kyung Mir Kurt Kroenke and colleagues, with an educational brenda from [employer]. YARELY-7 Assessment Billing YARELY-7 Assessment Tool: YARELY-7 Assessment 44740 Review of Systems Const Details: - Cardiovascular: Denies chest pain. - Gastrointestinal: Denies right upper quadrant abdominal pain. - Neurological: Reports dizziness since the previous day. Physical exam (Primary Care) Vital Signs: Last Vital Signs Temp 97.9 F 02/28/25 14:52 Pulse 84 02/28/25 14:52 Resp 16 02/28/25 14:52 BP 110/60 02/28/25 15:19 Pulse Ox 99 02/28/25 14:52 Oxygen Delivery Method Room Air 02/28/25 14:52 Care Plan Goal for BP management: <140/90 at Goal BMI result Body Mass Index 27.9 BMI Assessment/Plan discussion: High BMI High, discussed plan: lifestyle, weight reduction, dietary, physical activity and alcohol moderation Tobacco/Smoking Status: Tobacco use Status Tobacco use date assessed 02/28/25 02/28/25 14:51 Patient Tobacco Use Status Never used Tobacco 02/28/25 14:58 PHQ-9: PHQ-9 Score PHQ-9: Total score 0 02/28/25 15:21 Depression Screening Interpretation: Negative Thrive Assessment: Date of Thrive Assessment Date Thrive assessed 02/28/25 02/28/25 14:51 Currently or been in a relationship where the following occur: No concerns reported Const Other: Appearance: Alert. Oriented X3. No acute distress. Head: Normal external exam. Normocephalic. Atraumatic. Eyes: Pupils are equal, round, and reactive to light. Extraocular movements intact. Conjunctiva and sclera normal. Eyelids normal. Ears: External auditory canal normal. Tympanic membranes normal. Throat: Pharynx normal. Uvula midline. Moist mucous membranes. Neck: Normal inspection. Neck supple. Full range of motion. No adenopathy. Thyroid Normal. No meningeal signs. No neck mass noted. Cardiovascular: Normal heart rate and rhythm. Heart sound normal. Murmur noted. Pulses normal throughout. Respiratory: No respiratory distress. Painless inspiration. Breath sounds normal. No wheezes/rales/rhonchi noted. Chest nontender. No accessory muscle usage noted or decreased air movement noted. Abdomen: Soft and nontender. Bowel sounds normal in all 4 quadrants. No distention noted. No organomegaly noted. No visible injury noted. Back: No costovertebral angle tenderness. Full range of motion noted. Skin: Skin warm and dry. Normal skin color. Normal skin turgor. No rashes/lesions/lacerations noted. Extremities: No lower extremity edema. Extremities exhibit normal range of motion. Extremities nontender. Neuro: Oriented X 3. No motor deficit. No sensory deficit. Reflexes normal. Blood pressure noted to be low at 110/60. Results AMB Random Glucose (hemocue) AMB Random Glucose (hemocue) 105 mg/dL Last Edit by FRANCO Fontenot on 02/28/25 15:20 Results Reviewed Results Reviewed: Laboratory Last Values Random Glu (Clinic) 105 mg/dL 02/28/25 15:17 - Labs: Hemoglobin A1c 6.7%, LDL cholesterol 119 mg/dL, HDL cholesterol 37 mg/dL, AST 40 U/L. Coding Level of Care Code New Pt Level 4 (41648) Complex EM visit Add On G2211 Diagnoses Establish gestational age, ultrasound Z36.89 Type 2 diabetes mellitus with hemoglobin A1c goal of less than 7.0% E11.9 Elevated AST (SGOT) R74.01 Hyperlipidemia LDL goal <70 E78.5 Vitamin D deficiency E55.9 Heart murmur R01.1 Dizziness R42 Additional Codes PHQ-9 - 55603 - PHQ-9 Billing: Yes ([id number]) YARELY-7 Assessment Billing - YARELY-7 Assessment Tool: YARELY-7 Assessment 35693 ([id number]) Assessment & Plan Assessment & Plan (1) Establish gestational age, ultrasound: Code(s): Z36.89 - Encounter for other specified screening Category: Medical (2) Type 2 diabetes mellitus with hemoglobin A1c goal of less than 7.0%: Code(s): E11.9 - Type 2 diabetes mellitus without complications Category: Medical Plan: The patient will be sent for further blood work to differentiate between type 1 and type 2 diabetes, given the family history and current symptoms. Patient has tried metformin along with glyburide in the past and had adverse side effects to these therefore is hesitant to restart these medications. Patient requesting Mounjaro. Mounjaro has been prescribed, pending insurance approval, to manage her blood glucose levels. A follow-up appointment is scheduled in one month to assess the effectiveness of the treatment and adjust as necessary. (3) Elevated AST (SGOT): Code(s): R74.01 - Elevation of levels of liver transaminase levels Category: Medical Plan: The patient's liver enzymes will be monitored, and an abdominal ultrasound will be considered if levels continue to rise or if symptoms develop. (4) Hyperlipidemia LDL goal <70: Code(s): E78.5 - Hyperlipidemia, unspecified Category: Medical Plan: The patient is advised to lower LDL cholesterol levels through dietary modifications, as she is young and not currently a candidate for statin therapy. (5) Vitamin D deficiency: Code(s): E55.9 - Vitamin D deficiency, unspecified Category: Medical Plan: Vitamin D supplementation has been prescribed to address the deficiency and reduce the risk of osteoporosis. (6) Heart murmur: Code(s): R01.1 - Cardiac murmur, unspecified Category: Medical Plan: An echocardiogram has been ordered to further evaluate the detected heart murmur. (7) Dizziness: Code(s): R42 - Dizziness and giddiness Category: Medical Plan: The patient is advised to increase fluid intake to address potential dehydration contributing to dizziness. If dizziness persists, further evaluation will be conducted. Plan Plan Patient was informed and verbally consented to the use of an ambient scribe for clinic note documentation during this visit. 1. Type 2 Diabetes Mellitus The patient will be sent for further blood work to differentiate between type 1 and type 2 diabetes, given the family history and current symptoms. Mounjaro has been prescribed, pending insurance approval, to manage her blood glucose levels. A follow-up appointment is scheduled in one month to assess the effectiveness of the treatment and adjust as necessary. 2. Elevated Liver Enzymes The patient's liver enzymes will be monitored, and an abdominal ultrasound will be considered if levels continue to rise or if symptoms develop. 3. Hyperlipidemia The patient is advised to lower LDL cholesterol levels through dietary modifications, as she is young and not currently a candidate for statin therapy. 4. Vitamin D Deficiency Vitamin D supplementation has been prescribed to address the deficiency and reduce the risk of osteoporosis. 5. Heart Murmur An echocardiogram has been ordered to further evaluate the detected heart murmur. 6. Dizziness The patient is advised to increase fluid intake to address potential dehydration contributing to dizziness. If dizziness persists, further evaluation will be conducted. I discussed with the patient the management of her type 2 diabetes, including the potential use of Mounjaro pending insurance approval. We reviewed the need for further blood work to differentiate between type 1 and type 2 diabetes, considering her family history. I explained the importance of monitoring her liver enzymes and the potential need for an abdominal ultrasound if levels continue to rise. We also discussed dietary modifications to manage her hyperlipidemia and the prescription of vitamin D supplements to address her deficiency. An echocardiogram was ordered to evaluate the heart murmur detected during the examination. I advised her to increase fluid intake to address dizziness and to follow up if symptoms persist. Orders: Orders Glutamic acid decarboxylase Ab Today E11.9 - Type 2 diabetes mellitus without complications MM screening mammo BI Today Z12.31 - Encounter for screening mammogram for malignant neoplasm of breast Insulin Auto Antibody Today E11.9 - Type 2 diabetes mellitus without complications CA echo transthoracic complete Today R01.1 - Cardiac murmur, unspecified AMB Random Glucose (hemocue) Today E11.9 - Type 2 diabetes mellitus without complications, Z13.9 - Encounter for screening, unspecified Medications: New tirzepatide (Mounjaro) for 4 weeks 2.5 mg (0.5 mL) subcut QWEEK 2 mL 0RF E11.9 - Type 2 diabetes mellitus without complications cholecalciferol (vitamin D3) 50 mcg PO DAILY 90 caps 3RF E55.9 - Vitamin D deficiency, unspecified Patient Instructions: - Take prescribed vitamin D supplements as directed. - Follow a diet to lower LDL cholesterol levels. - Increase fluid intake to prevent dehydration. - Schedule and attend follow-up appointments as discussed. - Contact the office if dizziness persists or worsens.
[2025-02-28 14:52] VITALS: BP 140/76; PULSE 84; RESP 16; TEMP 36.6; O2SAT 99; BMI 27.9
[2025-02-28 15:19] VITALS: BP 110/60
== END 2025-02-28 15:19 | disposition home or self-care (01) ==
LOC: HO.HMCSH 14:46
PROVIDERS: PCP Physician Assistant Medical; Visit Provider Physician Assistant Medical
DX: Z36.89 Encounter for other specified antenatal screening (principal); E11.9 Type 2 diabetes mellitus without complications; R74.01 Elevation of levels of liver transaminase levels; E78.5 Hyperlipidemia, unspecified; E55.9 Vitamin D deficiency, unspecified; R01.1 Cardiac murmur, unspecified; R42 Dizziness and giddiness; Z13.9 Encounter for screening, unspecified

== ENCOUNTER → 2025-02-28 14:45 | Outpatient (BNVA) | payer BC, MEDICAID, SELFPAY | PROVIDERS: PCP Physician Assistant Medical; Visit Provider Physician Assistant Medical | DX: E11.9 Type 2 diabetes mellitus without complications (principal); R42 Dizziness and giddiness; E78.5 Hyperlipidemia, unspecified; R74.01 Elevation of levels of liver transaminase levels; E55.9 Vitamin D deficiency, unspecified; R01.1 Cardiac murmur, unspecified | CPT/HCPCS: 82948; 96127 ==

== ENCOUNTER 2025-06-10 09:20 | Outpatient (AMB) | payer BC, MEDICAID, SELFPAY ==
--- NOTE | 2025-06-10 09:26 | MHC.PC.OV ---
Vital Signs 06/10/25 09:27 Weight 138 lb BP 122/79 Blood Pressure Location Rt brachial Position Sitting Pulse 86 Pulse Source Pulse Oximeter Temp 97.0 F Temp Source Temporal Artery Scan Pulse Oximetry (%) 99 Oxygen Delivery Method Room Air Intake Visit Reasons: Follow-up Accompanied by: Self / Same As Patient Allergies No Known Allergies Allergy (Verified 06/10/25 09:34) Medication List - Last Reconciled 06/10/25 by Amelia Pretty PA-C cholecalciferol (vitamin D3) 50 mcg PO DAILY tirzepatide (Mounjaro) 7.5 mg (0.5 mL) subcut QWEEK Tobacco use date assessed: 06/10/25 Dental Screening Dental Screen Date: 06/10/25 Did you have a dental visit in the last 12 months?: No HPI Follow-up HPI Details The patient is a 35-year-old female presenting for a three-month follow-up visit. The patient has a history of diabetes mellitus, with a previous A1c of 6.7% in February, which has improved to 5.8%, indicating a return to prediabetes levels. She is currently on Mounjaro 7.5 mg, which she reports is effective, and she is also taking a vitamin D supplement. The patient reports breast pain, reminiscent of previous episodes when she had lumps, although she does not currently feel any lumps. The pain is localized to the left breast, specifically at the 3 o'clock and 6 o'clock positions. An ultrasound and diagnostic mammogram have been discussed as part of her preventative care. Social History - Family planning: Underwent tubal ligation in March to prevent further pregnancies. - Weight management: Lost 32 pounds over the past three months. [facility] Medical History Breast pain Dizziness Hyperlipidemia LDL goal <70 Establish gestational age, ultrasound Elevated AST (SGOT) Heart murmur Vitamin D deficiency Type 2 diabetes mellitus with hemoglobin A1c goal of less than 7.0% Breast pain, left Surgical History H/O lumpectomy Bilateral breast lump Family History Mother Diabetes Hypertension Father Diabetes Hypertension Social History Housing: House Alcohol intake: current Alcohol intake frequency: does not drink Patient Tobacco Use Status: Never used Tobacco service: No Current occupational status: employed Sexual orientation: Straight/Heterosexual Gender identity: Female Cognitive needs: No Hearing needs: No Vision needs: No Female Reproductive History Menstrual Age of Menarche: 10 Questionnaire PHQ-9 Over the last 2 weeks, how often have you been bothered by any of the following problems? 1. Little interest or pleasure in doing things: not at all 2. Feeling down, depressed, or hopeless: not at all 3. Trouble falling or staying asleep, or sleeping too much: not at all 4. Feeling tired or having little energy: not at all 5. Poor appetite or overeating: not at all 6. Feeling bad about yourself - or that you are a failure or have let yourself or your family down: not at all 7. Trouble concentrating on things, such as reading the newspaper or watching television: not at all 8. Moving or speaking so slowly that other people could have noticed. Or the opposite - being so fidgety or restless that you have been moving around a lot more than usual: not at all 9. Thoughts that you would be better off or of hurting yourself in some way: not at all Total score: 0 Depression Screening Interpretation: Negative Depression Screening Done: Yes 26269 - PHQ-9 Billing: Yes Source: Developed by Drs. Humphrey Sandhu, Kyung Chance, Dangelo Keita and colleagues, with an educational brenda from [facility]. Thrive Questionnaire Date Thrive assessed: 06/10/25 I am a: Patient What is your living situation today?: I have a steady place to live Within the past 12 months, did the food you bought not last and you didn't have the money to get more?: Never true Within the past 12 months, did you worry whether your food would run out before you got money to buy more?: Never true Do you have trouble paying for medicines?: No Do you have trouble getting transportation to medical appointments?: No Do you have trouble paying your heating and electricity bill?: No Do you have trouble taking care of your child, family member or friend?: No Do you have trouble with day-to-day activities such as bathing, preparing meals, shopping, managing finances, etc.?: No Are you currently unemployed and looking for a job?: No Are you interested in more education?: No Please select the resources that you would like help with: None Currently or been in a relationship where the following occur: No concerns reported THRIVE Score: 0 AUDIT C Alcohol Use Questionnaire (AUDIT-C) 1. How often do you have a drink containing alcohol?: Never 3. How often do you have six or more drinks on one occasion?: Never Total Score: 0 Score Reviewed/Action Taken: No YARELY-7 AMB Questionnaire YARELY-7 Date YARELY - 7 assessed: 06/10/25 Feeling nervous, anxious, or on edge: 0 = Not at all Not being able to stop or control worryin = Not at all Worrying too much about different things: 0 = Not at all Trouble relaxin = Not at all Being so restless that it is hard to sit still: 0 = Not at all Becoming easily annoyed or irritable: 0 = Not at all Feeling afraid as if something awful might happen: 0 = Not at all Total YARELY-7 score (0-4 normal; 5-9 mild; 10-14 moderate; 15-21 severe): 0 Source: Developed by Drs. Humphrey Sandhu, Kyung Chance, Dangelo Keita and colleagues, with an educational brenda from [facility]. YARELY-7 Assessment Billing YARELY-7 Assessment Tool: YARELY-7 Assessment 72240 Review of Systems Const Details: - Endocrine: Reports effective management of diabetes with Mounjaro. - Breast: Reports pain in the left breast, denies palpable lumps. All systems reviewed & are unremarkable except as noted in HPI and below Physical exam (Primary Care) Vital Signs: Last Vital Signs Temp 97.0 F 06/10/25 09:27 Pulse 86 06/10/25 09:27 BP 122/79 06/10/25 09:27 Pulse Ox 99 06/10/25 09:27 Oxygen Delivery Method Room Air 06/10/25 09:27 Care Plan Goal for BP management: <140/90 at Goal Tobacco/Smoking Status: Tobacco use Status Tobacco use date assessed 06/10/25 06/10/25 09:30 Patient Tobacco Use Status Never used Tobacco 06/10/25 09:30 PHQ-9: PHQ-9 Score PHQ-9: Total score 0 06/10/25 09:37 Depression Screening Interpretation: Negative Thrive Assessment: Date of Thrive Assessment Date Thrive assessed 06/10/25 06/10/25 09:30 Currently or been in a relationship where the following occur: No concerns reported Const Other: Appearance: Alert. Oriented X3. No acute distress. Head: Normal external exam. Normocephalic. Atraumatic. Eyes: Pupils are equal, round, and reactive to light. Extraocular movements intact. Conjunctiva and sclera normal. Eyelids normal. Throat: Pharynx normal. Uvula midline. Moist mucous membranes. Neck: Normal inspection. Neck supple. Full range of motion. Cardiovascular: Normal heart rate and rhythm. Respiratory: No respiratory distress. Painless inspiration. Back: No costovertebral angle tenderness. Full range of motion noted. Skin: Skin warm and dry. Normal skin color. Extremities: Extremities exhibit normal range of motion. Results AMB Hemoglobin A1c AMB Hemoglobin A1c 5.8 % Last Edit by Nicole Keen CMA on 06/10/25 10:02 Results Reviewed Results Reviewed: - Labs: Hemoglobin A1c improved from 6.7% in February to 5.8%. Coding Level of Care Code Est Pt Level 4 (40424) Complex EM visit Add On G2211 Diagnoses Type 2 diabetes mellitus with hemoglobin A1c goal of less than 7.0% E11.9 Breast pain, left N64.4 Additional Codes YARELY-7 Assessment Billing - YARELY-7 Assessment Tool: YARELY-7 Assessment 93062 ([id number]) PHQ-9 - 08724 - PHQ-9 Billing: Yes ([id number]) Assessment & Plan Assessment & Plan (1) Type 2 diabetes mellitus with hemoglobin A1c goal of less than 7.0%: Code(s): E11.9 - Type 2 diabetes mellitus without complications Category: Medical Plan: The patient's diabetes mellitus is currently well-managed with Mounjaro 7.5 mg, resulting in an improved A1c of 5.8%. Continued monitoring of blood glucose levels and adherence to medication is advised. (2) Breast pain, left: Code(s): N64.4 - Mastodynia Category: Medical Plan: The patient reports breast pain without palpable lumps, localized to the left breast at 3 o'clock and 6 o'clock positions. An ultrasound and diagnostic mammogram have been recommended to further evaluate the area. Plan Plan Patient was informed and verbally consented to the use of an ambient scribe for clinic note documentation during this visit. 1. Diabetes Mellitus The patient's diabetes mellitus is currently well-managed with Mounjaro 7.5 mg, resulting in an improved A1c of 5.8%. Continued monitoring of blood glucose levels and adherence to medication is advised. 2. Breast Pain The patient reports breast pain without palpable lumps, localized to the left breast at 3 o'clock and 6 o'clock positions. An ultrasound and diagnostic mammogram have been recommended to further evaluate the area. During the visit, we discussed the management of the patient's diabetes mellitus, emphasizing the importance of maintaining current medication and monitoring blood glucose levels. We also addressed the patient's breast pain, and I recommended an ultrasound and diagnostic mammogram to investigate further. Orders: Orders AMB Hemoglobin A1c Today Z13.9 - Encounter for screening, unspecified MM diagnostic mammo BI Today N64.4 - Mastodynia US breast LT limited Today N64.4 - Mastodynia Patient Instructions: - Continue taking Mounjaro 7.5 mg as prescribed. - Schedule and complete the recommended ultrasound and diagnostic mammogram. - Monitor blood glucose levels regularly.
[2025-06-10 09:27] VITALS: BP 122/79; PULSE 86; TEMP 36.1; O2SAT 99
== END 2025-06-10 09:51 | disposition home or self-care (01) ==
LOC: HO.HMCSH 09:20
PROVIDERS: PCP Physician Assistant Medical; Visit Provider Physician Assistant Medical
DX: E11.9 Type 2 diabetes mellitus without complications (principal); N64.4 Mastodynia; Z13.9 Encounter for screening, unspecified

== ENCOUNTER → 2025-06-10 09:20 | Outpatient (BNVA) | payer BC, MEDICAID, SELFPAY | PROVIDERS: PCP Physician Assistant Medical; Visit Provider Physician Assistant Medical | DX: E11.9 Type 2 diabetes mellitus without complications (principal); N64.4 Mastodynia; Z79.85 Long-term (current) use of injectable non-insulin antidiabetic drugs; Z13.31 Encounter for screening for depression; Z13.39 Encounter for screening examination for other mental health and behavioral disorders | CPT/HCPCS: 83036; 96127 ==

== ENCOUNTER 2025-07-15 14:25 | Outpatient (REF) | payer BC, MEDICAID, SELFPAY ==
--- NOTE | ~2025-07-15 | US_ITS ---
EXAMINATION(S): 1. MM DIAGNOSTIC DIGITAL BREAST TOMOSYNTHESIS, BILATERAL 2. TARGETED ULTRASOUND OF THE BILATERAL BREASTS CLINICAL INFORMATION: According to requisition: Left breast lump at 3:00 and 9:00 According to patient: Right breast lump at 12 o'clock position (more towards chest) and left breast upper outer quadrant. COMPARISON: December 11, 2021 and November 19, 2020 TECHNIQUE: Digital breast tomosynthesis is performed in both the mediolateral oblique and craniocaudal views along with computer-aided detection (CAD). Synthesized 2D images are generated from the tomosynthesis. Skin BB marker is placed at the location of the palpable concern as indicated by the patient. FINDINGS: BREAST COMPOSITION: There are scattered areas of fibroglandular density. RIGHT BREAST: No significant masses, suspicious calcifications or other abnormalities are seen. Note that the skin BB marker at 12 o'clock position is above the level included on today's mammogram images. Targeted ultrasound of the right breast was performed at the following locations: -Palpable area per patient at 1 o'clock position at 20 cm from the nipple. LEFT BREAST: No significant masses, suspicious calcifications or other abnormalities are seen. In particular, no mammographic abnormality adjacent to the skin BB marker placed in the upper outer quadrant. Targeted ultrasound of the left breast was performed at the following locations: -Palpable area per patient at 3 o'clock position 2 cm from the nipple. No suspicious sonographic findings. -Palpable area per provider's order along the 9:00 axis. No suspicious sonographic findings. -Pain in the retroareolar region per patient. No suspicious sonographic findings. US/US Breast BI Limited Mamm Only IMPRESSION: RIGHT BREAST: Negative, no evidence of malignancy. No suspicious abnormalities to accounts for palpable concern in the upper chest. Clinical follow-up is recommended. LEFT BREAST: Negative, no evidence of malignancy. No suspicious abnormality to accounts for multiple clinical concerns. Clinical follow-up is recommended. ASSESSMENT: BI-RADS: Category 1: Negative RECOMMENDATION: 1. Patient should be managed based on the clinical impression. 2. Otherwise, routine annual screening mammography. Results were provided to the patient at time of visit by the technologist. This patient's information was entered into a reminder system with a target due date for their next mammogram. Electronically signed by: Skip Cortez MD 07/15/2025 03:42 PM EST RP
--- OUTSIDE RECORDS SUMMARY | 2025-07-15 19:20 | XMS_ITS | Data Portability ---
Author Organization [facility], [address] Address [address] [place] [address] Assessment No assessment recorded. Plan of Treatment [...] Name and Address Organization Details Recorded Time OC-UDS Send Out Template NON DOT completed SMITA ALLANWILLIE [facility] 02/01/2023 11:20:05 Imaging Results None recorded. Procedure [...] Diagnosis SNOMED-CT Code Diagnosis ICD10 Code Diagnosis IMO Codes Diagnosis Note [id number] [address] [place] [address] 08/16/2021 08:55:00 08/16/2021 10:01:35 [id number] [address] [place] [address] 12/03/2019 14:29:21 12/03/2019 16:05:48 [id number] [address] [place] [address] 07/11/2015 15:08:42 07/11/2015 15:39:32 [id number] [address] [place] [address] 05/27/2016 12:42:41 05/27/2016 14:10:04 [id number] [address] [place] [address] 09/20/2017 11:48:12 09/20/2017 12:14:58 [id number] [address] [place] [address] 09/17/2019 17:36:13 09/17/2019 18:46:18 [id number] [address] [place] [address] 03/06/2016 19:12:00 03/06/2016 19:49:20 [id number] Mei Hubbard MD [address] [place] [address] 02/01/2023 10:52:02 02/01/2023 11:22:40 History and physical examination, occupation [id number] Z02.1 Health Concerns Section Related Observation LastModified by Organization Detai ls LastModified Time None Recorded Concern Status LastModified by Organization Details LastModified Time None Recorded Advance Directives Directive None Recorded Payers Insurance Date Sequence Insurance Name Policy Number Policy Vazquez Covered Member ID Vazquez Member ID Guarantor Name 02/01/2023 1 [facility] MEDICAID ESSENTIAL (MEDICAID HMO) [id number] Harika Villasenor [id number] Hailey Gil Benita 02/01/2023 2 [place] [facility] Hailey Villasenor [id number] Hailey Gil Benita 02/01/2023 OC-ESCREEN Hailey Gil Benita [facility] Hailey Gil Benita OBGyn Episode No OBEpisode recorded.
== END 2025-07-15 14:26 | disposition home or self-care (01) ==
LOC: HO.MAMMO 14:25
PROVIDERS: PCP Physician Assistant Medical; Visit Provider Physician Assistant Medical
DX: N64.4 Mastodynia (principal)
CPT/HCPCS: 76642; 77062; 77066

== ENCOUNTER → 2025-07-15 14:30 | Outpatient (BNV) | payer BC, MEDICAID, SELFPAY | PROVIDERS: PCP Physician Assistant Medical; Visit Provider Radiology Body Imaging | DX: N64.4 Mastodynia (principal) | CPT/HCPCS: 76642; 77062; 77066 ==